=== PATIENT | female | born 1995 | race African-American/Black ===

== ENCOUNTER 2018-03-23 16:21 | Emergency (ER) | payer OTHER ==
[~2018-03-23] VITALS: Ht 154.9 cm; Wt 57.6 kg
[2018-03-23] MEDS ORDERED: BACTRIM DS TAB1 EACH PO (17:14)
[2018-03-23] MEDS ORDERED: TRAMADOL 50 MG50 MG PO (17:19)
[2018-03-23 17:20] VITALS: BP 118/71
== END 2018-03-23 17:25 | disposition home or self-care (01) ==
LOC: ER 16:21
DX: L02.412 Cutaneous abscess of left axilla (principal)

== ENCOUNTER 2021-03-10 13:16 | Emergency (ER) | payer OTHER ==
[~2021-03-10] VITALS: Ht 152.4 cm; Wt 51.7 kg
[~2021-03-10 13:16] MED LIST: BACTRIM DS TAB1 EACH PO; TRAMADOL 50 MG50 MG PO
[2021-03-10 13:30] VITALS: BP 114/63
== END 2021-03-10 15:07 | disposition home or self-care (01) ==
LOC: ER 13:16
DX: J06.9 Acute upper respiratory infection, unspecified (principal); Z20.822 Contact with and (suspected) exposure to COVID-19; M54.89 Other dorsalgia; Z79.899 Other long term (current) drug therapy